=== PATIENT | male | born 1975 | race Caucasian/White ===

== ENCOUNTER → 2020-12-24 | Outpatient (CLI) | payer BC ==
--- NOTE | 2020-12-24 16:22 | US ---
EXAMINATION TYPE: US scrotum with doppler. Grayscale and color Doppler Duplex imaging performed of t he scrotum. DATE OF EXAM: 12/24/2020 COMPARISON: NONE CLINICAL HISTORY: N50.811 Right testicular pain. Since wednesday EXAM MEASUREMENTS: TESTICLES: Right Testicle: 4.7x2.3x3.6 cm Left Testicle: 5.2x2.3x3.3 cm EPIDIDYMIS HEAD: Right Epididymis: 1.1 cm Left Epididymis: 0.9 cm Doppler performed to assess for testicular vascularity; good bilateral color flow and waveforms are s een. There is no evidence of testicular torsion. Presence of hydroceles: No Presence of varicoceles: No Right epi cyst measuring 0.5x04x0.6cm ? Slightly increased flow of the right epi head IMPRESSION: 1. Right Epididymal cyst.
== END | disposition home or self-care (01) ==
LOC: RADUSWWP 14:02
PROVIDERS: ATTEND Family Medicine
DX: N50.3 Cyst of epididymis (principal)
CPT/HCPCS: 76870; 93975